=== PATIENT | female | born 1945 | race Caucasian/White ===

== ENCOUNTER 2019-09-23 20:19 | Inpatient (IN) | payer MEDICAID, MEDICARE, OTHER ==
[~2019-09-23] VITALS: Ht 157.5 cm; Wt 112.7 kg
[~2019-09-23 20:19] MED LIST: ALBUAER3 IN; CETI10TA93 PO; FLUT250M2 INH; MET50T PO
[2019-09-23] MEDS ORDERED: dilTIAZem 25 MG/5 ML VIAL IV ONE (21:30)
[2019-09-23] MEDS ORDERED: dilTIAZem HCL 60 MG TAB PO ONE (21:30)
[2019-09-23 22:19] LABS: Basophils # (auto) 0 uL; Basophils % (auto) 0.8 % (0.0-2.0); Eosinophils # (auto) 0 uL; Eosinophils % (auto) 0.1 % (0.0-7.0); Hematocrit 41.2 % (36.0-46.0); Hemoglobin 14.2 g/dL (12.2-16.2); Lymphocytes # (auto) 0.5 uL; Lymphocytes % (auto) 7.6 % (10.0-50.0); Mean Corpuscular Hemoglobin 31.9 pg (28.0-32.0); Mean Corpuscular Hgb Conc. 34.4 g/dL (32.0-36.0); Mean Corpuscular Volume 92.6 fL (80.0-100.0); Monocytes # (auto) 0.4 uL; Monocytes % (auto) 6.3 % (0.0-12.0); Neutrophils # (auto) 5.1 uL; Neutrophils % (auto) 85.2 % (37.0-80.0); Nucleated Red Blood Cells % 0.3 %; Platelet Count (auto) 208 10^3/uL (140-450); Red Blood Cells 4.45 10^6/uL (4.0-5.20); Red Cell Distribution Width 14.6 % (11.8-14.3)
[2019-09-23 22:38] LABS: Albumin 3.4 g/dL (3.4-5.0); Anion Gap 11 (5-15); Blood Urea Nitrogen 18 mg/dL (7-18); Calcium 8.6 mg/dL (8.5-10.1); Carbon Dioxide 20 mmol/L (21-32); Chloride 106 mmol/L (98-107); Glucose 126 mg/dL (74-106); INR 1.11 (0.9-1.15); Magnesium 2.3 mg/dL (1.6-2.6); Partial Thromboplastin Time 30.6 sec (23.64-32.05); Potassium 3.5 mmol/L (3.5-5.1); Sodium 137 mmol/L (136-145)
[2019-09-23 22:44] LABS: Alanine Aminotransferase 15 U/L (13-56); Alkaline Phosphatase 51 U/L (45-117); Aspartate Aminotransferase 16 U/L (15-37); BUN/Creatinine Ratio 15.8; GFR African American 60 mL/min; GFR Non-African American 50 mL/min; Total Protein 7.7 g/dL (6.4-8.2)
[2019-09-23] MEDS ORDERED: methylPREDNISolone SOD SUCC 125 MG/2 ML VL IV ONE (22:45)
[2019-09-24] VITALS (7 sets, daily range): BP systolic 108–152; BP diastolic 51–86
[2019-09-24] MEDS ORDERED: FUROSEMIDE 20 MG/2 ML VIAL IV ONE (00:30)
[2019-09-24] MEDS ORDERED: ONDANSETRON HCL 4 MG/2 ML VIAL IV PRN (00:45)
[2019-09-24] MEDS ORDERED: DOCUSATE SOD 100 MG CAP PO PRN (00:45)
[2019-09-24] MEDS ORDERED: MORPHINE SULF INJ 2 MG/ML SYRINGE 1ML IV PRN (01:00)
[2019-09-24] MEDS ORDERED: NITROGLYCERIN 0.4 MG SL TAB SL PRN (01:00)
[2019-09-24] MEDS: ALBUTEROL SULF 2.5 MG/0.5ML(0.5%) NEB SOLN NEB PRN ×3 (02:48→12:07)
[2019-09-24] MEDS: ACETAMINOPHEN 325 MG TAB PO PRN ×4 (08:19→18:26)
[2019-09-24] MEDS: ASPirin 81 mg TAB PO SCH (09:13)
[2019-09-24] MEDS: dilTIAZem HCL 180MG ER CAP PO SCH (09:14)
[2019-09-24] MEDS: METOPROLOL TARTRATE 25 MG TAB PO SCH ×2 (09:15→22:33)
[2019-09-24] MEDS: PANTOPRAZOLE 40 MG TAB PO SCH (09:15)
[2019-09-24] MEDS: ENOXAPARIN SOD 40 MG/0.4 ML SYRINGE SC SCH (09:16)
[2019-09-24] MEDS ORDERED: guaiFENesin-DM 100/10mg/5ml SYR PO PRN (15:15)
[2019-09-24] MEDS ORDERED: levoFLOXacin 500 MG TAB PO ONE (15:15)
[2019-09-24] MEDS ORDERED: BUDESONIDE (INHALATION) 0.5 MG/2 ML NEB NEB ONE (15:15)
[2019-09-24] MEDS ORDERED: SODIUM CHLORIDE 0.9% 1,000 ML IV ONE (15:15)
[2019-09-24] MEDS ORDERED: methylPREDNISolone SOD SUCC 40 MG/ML VL IV ONE (15:15)
[2019-09-24] MEDS: BUDESONIDE (INHALATION) 0.5 MG/2 ML NEB NEB SCH (19:49)
[2019-09-24] MEDS: LEVALBUTEROL HCL 1.25 MG/3 ML NEB NEB SCH (19:49)
[2019-09-24] MEDS: methylPREDNISolone SOD SUCC 40 MG/ML VL IV SCH (22:30)
[2019-09-24] MEDS: ATORVASTATIN 20 MG TAB PO SCH (22:31)
[2019-09-24] MEDS: MONTELUKAST SODIUM 10 MG TAB PO SCH (22:34)
[2019-09-25] MEDS: LEVALBUTEROL HCL 1.25 MG/3 ML NEB NEB SCH ×4 (04:27→23:08)
[2019-09-25 05:35] VITALS: BP 152/72
[2019-09-25 06:51] LABS: Basophils # (auto) 0 uL; Basophils % (auto) 0.3 % (0.0-2.0); Eosinophils # (auto) 0 uL; Hematocrit 41.7 % (36.0-46.0); Hemoglobin 14.2 g/dL (12.2-16.2); Lymphocytes # (auto) 0.6 uL; Lymphocytes % (auto) 16.1 % (10.0-50.0); Mean Corpuscular Hemoglobin 31.7 pg (28.0-32.0); Mean Corpuscular Hgb Conc. 34.1 g/dL (32.0-36.0); Mean Corpuscular Volume 92.9 fL (80.0-100.0); Monocytes # (auto) 0.4 uL; Neutrophils % (auto) 73.6 % (37.0-80.0); Nucleated Red Blood Cells % 0.3 %; Platelet Count (auto) 255 10^3/uL (140-450); Red Blood Cells 4.49 10^6/uL (4.0-5.20); Red Cell Distribution Width 14.6 % (11.8-14.3)
[2019-09-25 07:10] LABS: Calcium 8.6 mg/dL (8.5-10.1); Potassium 3.7 mmol/L (3.5-5.1)
[2019-09-25 07:11] LABS: BUN/Creatinine Ratio 28.1
[2019-09-25 07:12] LABS: Cholesterol 149 mg/dL (< 200); HDL Cholesterol 27 mg/dL (40-59); LDL Cholesterol 101 mg/dL (< 100); Triglycerides 167 mg/dL (< 150)
[2019-09-25] MEDS: BUDESONIDE (INHALATION) 0.5 MG/2 ML NEB NEB SCH ×2 (07:20→23:08)
[2019-09-25 09:43] VITALS: BP 146/78
[2019-09-25] MEDS: ASPirin 81 mg TAB PO SCH (10:27)
[2019-09-25] MEDS: dilTIAZem HCL 180MG ER CAP PO SCH (10:28)
[2019-09-25] MEDS: levoFLOXacin 250 MG TAB PO SCH (10:28)
[2019-09-25] MEDS: METOPROLOL TARTRATE 25 MG TAB PO SCH (10:28)
[2019-09-25] MEDS: methylPREDNISolone SOD SUCC 40 MG/ML VL IV SCH ×2 (10:29→23:01)
[2019-09-25] MEDS: PANTOPRAZOLE 40 MG TAB PO SCH (10:29)
[2019-09-25] MEDS: ENOXAPARIN SOD 40 MG/0.4 ML SYRINGE SC SCH (10:29)
[2019-09-25] MEDS ORDERED: dilTIAZem HCL 180MG ER CAP PO ONE (11:15)
[2019-09-25] MEDS ORDERED: DIGOXIN (250MCG/ML) 2 ML AMPULE IV ONE (12:00)
[2019-09-25 13:00] VITALS: BP 129/71
[2019-09-25] MEDS: ACETYLCYSTEINE 10 %(100MG/ML) SOL 4ML NEB SCH ×3 (14:00→23:08)
[2019-09-25 17:00] VITALS: BP 130/76
[2019-09-25 22:00] VITALS: BP 147/67
[2019-09-25] MEDS: AMIODARONE HCL 200 MG TAB PO SCH (22:00)
[2019-09-25] MEDS: ATORVASTATIN 20 MG TAB PO SCH (22:57)
[2019-09-25] MEDS: MONTELUKAST SODIUM 10 MG TAB PO SCH (22:59)
[2019-09-25] MEDS: METOPROLOL TARTRATE 50 MG TAB PO SCH (23:02)
[2019-09-26] MEDS: LEVALBUTEROL HCL 1.25 MG/3 ML NEB NEB SCH ×6 (02:24→22:42)
[2019-09-26] MEDS: ACETYLCYSTEINE 10 %(100MG/ML) SOL 4ML NEB SCH ×6 (02:24→22:43)
[2019-09-26 05:00] VITALS: BP 147/79
[2019-09-26] MEDS: BUDESONIDE (INHALATION) 0.5 MG/2 ML NEB NEB SCH ×2 (06:18→22:43)
[2019-09-26 07:37] LABS: Potassium 3.9 mmol/L (3.5-5.1)
[2019-09-26 07:44] LABS: BUN/Creatinine Ratio 35.5
[2019-09-26 09:00] VITALS: BP 138/67
[2019-09-26] MEDS ORDERED: ASPirin-EC 325mg tab PO SCH (10:00)
[2019-09-26] MEDS: AMIODARONE HCL 200 MG TAB PO SCH ×2 (10:14→22:37)
[2019-09-26] MEDS: levoFLOXacin 250 MG TAB PO SCH (10:14)
[2019-09-26] MEDS: METOPROLOL TARTRATE 50 MG TAB PO SCH ×2 (10:14→22:36)
[2019-09-26] MEDS: methylPREDNISolone SOD SUCC 40 MG/ML VL IV SCH ×2 (10:15→22:38)
[2019-09-26] MEDS: ENOXAPARIN SOD 40 MG/0.4 ML SYRINGE SC SCH (10:15)
[2019-09-26] MEDS: dilTIAZem 120MG ER CAP PO SCH (10:15)
[2019-09-26] MEDS: PANTOPRAZOLE 40 MG TAB PO SCH (10:15)
[2019-09-26] MEDS ORDERED: APIXABAN 5 MG TAB PO SCH (11:59)
[2019-09-26 13:00] VITALS: BP_SYST 122; BP_SYST 156; BP_DIAS 63; BP_DIAS 71
[2019-09-26 17:00] VITALS: BP 143/60
[2019-09-26 19:13] VITALS: BP 143/60
[2019-09-26] MEDS: IPRATROPIUM BROM 0.5 MG/2.5ML INH SOL NEB PRN (19:20)
[2019-09-26 21:00] VITALS: BP 148/63
[2019-09-26] MEDS: APIXABAN 5 MG TAB PO SCH (22:36)
[2019-09-26] MEDS: TEMAZEPAM 15 MG CAP PO PRN (22:38)
[2019-09-26] MEDS: ATORVASTATIN 20 MG TAB PO SCH (22:38)
[2019-09-26] MEDS: MONTELUKAST SODIUM 10 MG TAB PO SCH (22:38)
[2019-09-27] MEDS: IPRATROPIUM BROM 0.5 MG/2.5ML INH SOL NEB PRN (02:05)
[2019-09-27] MEDS: ACETYLCYSTEINE 10 %(100MG/ML) SOL 4ML NEB SCH ×6 (02:05→21:26)
[2019-09-27] MEDS: LEVALBUTEROL HCL 1.25 MG/3 ML NEB NEB SCH ×6 (02:05→21:25)
[2019-09-27 05:32] LABS: Urine Amorphous Crystal FEW /hpf (None Seen); Urine Bacteria MANY /hpf (None Seen); Urine Blood Negative /uL (Negative); Urine Specific Gravity 1.032 (1.001-1.035); Urine WBC 39 /hpf (0 - 5)
[2019-09-27 06:39] LABS: Basophils # (auto) 0 uL; Basophils % (auto) 0.1 % (0.0-2.0); Eosinophils # (auto) 0 uL; Hematocrit 39.4 % (36.0-46.0); Hemoglobin 13.2 g/dL (12.2-16.2); Lymphocytes # (auto) 0.9 uL; Lymphocytes % (auto) 13.7 % (10.0-50.0); Mean Corpuscular Hgb Conc. 33.4 g/dL (32.0-36.0); Monocytes # (auto) 0.4 uL; Monocytes % (auto) 6.4 % (0.0-12.0); Neutrophils # (auto) 5.4 uL; Neutrophils % (auto) 79.8 % (37.0-80.0); Nucleated Red Blood Cells % 0.1 %; Platelet Count (auto) 279 10^3/uL (140-450); Red Blood Cells 4.24 10^6/uL (4.0-5.20); Red Cell Distribution Width 14.5 % (11.8-14.3); White Blood Cell 6.8 10^3/uL (4.4-10.8)
[2019-09-27 07:01] LABS: Potassium 4.2 mmol/L (3.5-5.1)
[2019-09-27 07:08] LABS: Albumin 3.2 g/dL (3.4-5.0); BUN/Creatinine Ratio 36.8; Bilirubin, Total 0.3 mg/dL (0.2-1.0); Total Protein 7.6 g/dL (6.4-8.2)
[2019-09-27 08:23] VITALS: BP 125/67
[2019-09-27] MEDS: BUDESONIDE (INHALATION) 0.5 MG/2 ML NEB NEB SCH ×2 (09:36→19:00)
[2019-09-27] MEDS: methylPREDNISolone SOD SUCC 40 MG/ML VL IV SCH ×2 (09:42→22:09)
[2019-09-27] MEDS: levoFLOXacin 250 MG TAB PO SCH (09:42)
[2019-09-27] MEDS: APIXABAN 5 MG TAB PO SCH ×2 (09:42→22:09)
[2019-09-27] MEDS: AMIODARONE HCL 200 MG TAB PO SCH ×2 (09:42→22:11)
[2019-09-27] MEDS: PANTOPRAZOLE 40 MG TAB PO SCH (09:42)
[2019-09-27] MEDS: dilTIAZem 120MG ER CAP PO SCH (09:43)
[2019-09-27] MEDS: METOPROLOL TARTRATE 50 MG TAB PO SCH ×2 (09:44→22:09)
[2019-09-27] MEDS ORDERED: cloNIDine HCL 0.1 MG TAB PO PRN (12:15)
[2019-09-27 13:00] VITALS: BP 154/95
[2019-09-27 17:23] VITALS: BP 152/64
[2019-09-27] MEDS: FUROSEMIDE 20 MG TAB PO SCH (18:00)
[2019-09-27 21:00] VITALS: BP 151/70
[2019-09-27] MEDS: ATORVASTATIN 20 MG TAB PO SCH (22:09)
[2019-09-27] MEDS: POTASSIUM CHLORIDE 8 MEQ TAB PO SCH (22:10)
[2019-09-27] MEDS: MONTELUKAST SODIUM 10 MG TAB PO SCH (22:10)
[2019-09-27] MEDS: TEMAZEPAM 15 MG CAP PO PRN (23:44)
[2019-09-28] MEDS: ACETYLCYSTEINE 10 %(100MG/ML) SOL 4ML NEB SCH ×6 (02:28→21:26)
[2019-09-28] MEDS: IPRATROPIUM BROM 0.5 MG/2.5ML INH SOL NEB PRN (02:28)
[2019-09-28] MEDS: LEVALBUTEROL HCL 1.25 MG/3 ML NEB NEB SCH ×6 (02:28→21:25)
[2019-09-28 05:00] VITALS: BP 147/69
[2019-09-28] MEDS: FUROSEMIDE 20 MG TAB PO SCH ×2 (06:08→17:21)
[2019-09-28 06:58] LABS: Basophils # (auto) 0 uL; Basophils % (auto) 0.2 % (0.0-2.0); Eosinophils # (auto) 0 uL; Hematocrit 40.7 % (36.0-46.0); Hemoglobin 13.6 g/dL (12.2-16.2); Lymphocytes % (auto) 13.8 % (10.0-50.0); Mean Corpuscular Hemoglobin 31.1 pg (28.0-32.0); Mean Corpuscular Hgb Conc. 33.4 g/dL (32.0-36.0); Mean Corpuscular Volume 93.2 fL (80.0-100.0); Monocytes # (auto) 0.3 uL; Monocytes % (auto) 4.5 % (0.0-12.0); Neutrophils # (auto) 6.1 uL; Neutrophils % (auto) 81.5 % (37.0-80.0); Nucleated Red Blood Cells % 0.2 %; Platelet Count (auto) 262 10^3/uL (140-450); Red Blood Cells 4.36 10^6/uL (4.0-5.20); Red Cell Distribution Width 14.8 % (11.8-14.3); White Blood Cell 7.4 10^3/uL (4.4-10.8)
[2019-09-28 07:10] LABS: Calcium 8.5 mg/dL (8.5-10.1); Potassium 4.2 mmol/L (3.5-5.1)
[2019-09-28 09:00] VITALS: BP 151/71
[2019-09-28] MEDS: BUDESONIDE (INHALATION) 0.5 MG/2 ML NEB NEB SCH ×2 (09:20→21:26)
[2019-09-28] MEDS: levoFLOXacin 250 MG TAB PO SCH (10:20)
[2019-09-28] MEDS: APIXABAN 5 MG TAB PO SCH ×2 (10:20→22:30)
[2019-09-28] MEDS: PANTOPRAZOLE 40 MG TAB PO SCH (10:20)
[2019-09-28] MEDS: dilTIAZem 120MG ER CAP PO SCH (10:20)
[2019-09-28] MEDS: POTASSIUM CHLORIDE 8 MEQ TAB PO SCH ×2 (10:21→22:31)
[2019-09-28] MEDS: AMIODARONE HCL 200 MG TAB PO SCH ×2 (10:21→22:31)
[2019-09-28] MEDS: methylPREDNISolone SOD SUCC 40 MG/ML VL IV SCH ×2 (10:28→22:32)
[2019-09-28] MEDS: METOPROLOL TARTRATE 50 MG TAB PO SCH ×2 (10:29→22:30)
[2019-09-28 13:00] VITALS: BP 152/71
[2019-09-28 16:59] VITALS: BP 123/61
[2019-09-28 22:00] VITALS: BP 135/61
[2019-09-28] MEDS: MONTELUKAST SODIUM 10 MG TAB PO SCH (22:29)
[2019-09-28] MEDS: TEMAZEPAM 15 MG CAP PO PRN (22:29)
[2019-09-28] MEDS: ATORVASTATIN 20 MG TAB PO SCH (22:30)
[2019-09-29] MEDS: LEVALBUTEROL HCL 1.25 MG/3 ML NEB NEB SCH ×4 (02:14→15:48)
[2019-09-29] MEDS: ACETYLCYSTEINE 10 %(100MG/ML) SOL 4ML NEB SCH ×4 (02:14→15:48)
[2019-09-29] MEDS: IPRATROPIUM BROM 0.5 MG/2.5ML INH SOL NEB PRN (02:14)
[2019-09-29 05:00] VITALS: BP 136/64
[2019-09-29] MEDS: FUROSEMIDE 20 MG TAB PO SCH (06:28)
[2019-09-29 06:59] LABS: Calcium 8.5 mg/dL (8.5-10.1); Potassium 4.4 mmol/L (3.5-5.1)
[2019-09-29 07:05] LABS: BUN/Creatinine Ratio 36.8
[2019-09-29] MEDS: BUDESONIDE (INHALATION) 0.5 MG/2 ML NEB NEB SCH (08:08)
[2019-09-29 09:00] VITALS: BP 149/82
[2019-09-29] MEDS: METOPROLOL TARTRATE 50 MG TAB PO SCH (10:10)
[2019-09-29] MEDS: APIXABAN 5 MG TAB PO SCH (10:11)
[2019-09-29] MEDS: POTASSIUM CHLORIDE 8 MEQ TAB PO SCH (10:11)
[2019-09-29] MEDS: levoFLOXacin 250 MG TAB PO SCH (10:11)
[2019-09-29] MEDS: PANTOPRAZOLE 40 MG TAB PO SCH (10:11)
[2019-09-29] MEDS: dilTIAZem 120MG ER CAP PO SCH (10:12)
[2019-09-29] MEDS: AMIODARONE HCL 200 MG TAB PO SCH (10:13)
[2019-09-29] MEDS: methylPREDNISolone SOD SUCC 40 MG/ML VL IV SCH (10:15)
[2019-09-29] MEDS ORDERED: APIX5TAB PO (14:47)
[2019-09-29] MEDS ORDERED: AMIO200T4 PO (14:47)
[2019-09-29] MEDS ORDERED: PANT40T PO (14:47)
[2019-09-29] MEDS ORDERED: ATOR20TA50 PO (14:47)
[2019-09-29] MEDS ORDERED: DILT120C12 PO (14:47)
[2019-09-29 16:08] VITALS: BP 149/82
[2019-09-29 17:16] VITALS: BP 127/64
== END 2019-09-29 18:00 | disposition home health service (06) | DRG 291 ==
LOC: EDBD 20:19 → ER 20:24 → TELE 20:25 → TELE-EAST 09-24 02:00
PROVIDERS: ADMIT Nurse Practitioner; ATTEND Internal Medicine
DX: I13.0 Hypertensive heart and chronic kidney disease with heart failure and stage 1 through stage 4 chronic kidney disease, or unspecified chronic kidney disease (principal); I50.33 Acute on chronic diastolic (congestive) heart failure; J96.00 Acute respiratory failure, unspecified whether with hypoxia or hypercapnia; N17.0 Acute kidney failure with tubular necrosis; J44.1 Chronic obstructive pulmonary disease with (acute) exacerbation; J45.901 Unspecified asthma with (acute) exacerbation; D68.69 Other thrombophilia; J98.11 Atelectasis; J44.0 Chronic obstructive pulmonary disease with (acute) lower respiratory infection; I48.91 Unspecified atrial fibrillation; J20.9 Acute bronchitis, unspecified; E78.5 Hyperlipidemia, unspecified; E11.22 Type 2 diabetes mellitus with diabetic chronic kidney disease; N18.9 Chronic kidney disease, unspecified; E66.01 Morbid (severe) obesity due to excess calories; J98.4 Other disorders of lung; E11.21 Type 2 diabetes mellitus with diabetic nephropathy; E66.9 Obesity, unspecified; Z90.49 Acquired absence of other specified parts of digestive tract; Z79.51 Long term (current) use of inhaled steroids; Z82.49 Family history of ischemic heart disease and other diseases of the circulatory system; Z83.3 Family history of diabetes mellitus; Z88.2 Allergy status to sulfonamides
CPT/HCPCS: 36415; 36600; 71045; 78582; 80048; 80053; 80061; 81001; 82805; 83036; 83735; 83880; 84443; 84484; 85025; 85379; 85610; 85730; 87070; 87086; 87205; 87804; 93005; 93306; 93970; 94640; 97116; 97163; 97530; G0378

== ENCOUNTER 2019-10-06 11:22 | Inpatient (IN) | payer MEDICARE ==
[~2019-10-06] VITALS: Ht 157.5 cm; Wt 112.0 kg
[~2019-10-06 11:22] MED LIST changes: +AMIO200T4 PO; +APIX5TAB PO; +ATOR20TA50 PO; +DILT120C12 PO; +PANT40T PO
[2019-10-06 13:55] LABS: Basophils # (auto) 0 10 ^3/uL (0-0.2); Basophils % (auto) 0.1 % (0.0-2.0); Eosinophils # (auto) 0 10 ^3/uL (0-0.8); Eosinophils % (auto) 0.1 % (0.0-7.0); Hemoglobin 13.7 g/dL (12.2-16.2); Lymphocytes # (auto) 1.1 10 ^3/uL (0.4-5.4); Lymphocytes % (auto) 8.6 % (10.0-50.0); Mean Corpuscular Hemoglobin 31.2 pg (28.0-32.0); Mean Corpuscular Hgb Conc. 33.4 g/dL (32.0-36.0); Mean Corpuscular Volume 93.3 fL (80.0-100.0); Monocytes # (auto) 0.6 10 ^3/uL (0-1.3); Monocytes % (auto) 4.8 % (0.0-12.0); Neutrophils # (auto) 11.2 10 ^3/uL (1.6-8.6); Neutrophils % (auto) 86.4 % (37.0-80.0); Nucleated Red Blood Cells % 0.1 %; Platelet Count (auto) 298 10^3/uL (140-450); Red Cell Distribution Width 14.6 % (11.8-14.3)
[2019-10-06 14:08] LABS: Albumin 3.1 g/dL (3.4-5.0); Calcium 8.3 mg/dL (8.5-10.1); Potassium 4.5 mmol/L (3.5-5.1)
[2019-10-06 14:09] LABS: Urine Bacteria NONE SEEN /hpf (None Seen); Urine Blood Negative /uL (Negative); Urine Mucus FEW (None Seen); Urine Specific Gravity 1.029 (1.001-1.035); Urine WBC 1 /hpf (0 - 5)
[2019-10-06 14:11] LABS: BUN/Creatinine Ratio 27.8; Bilirubin, Total 1.1 mg/dL (0.2-1.0); Total Protein 6.9 g/dL (6.4-8.2)
[2019-10-06 14:14] LABS: INR 1.06 (0.9-1.15); Partial Thromboplastin Time 29.1 sec (23.64-32.05)
[2019-10-06] MEDS ORDERED: cefTRIAXone 1GM/50ML D5W 50 ML IV ONE (15:15)
[2019-10-06] MEDS ORDERED: HYDROcodone-ACET 5/325MG TAB PO ONE (15:30)
[2019-10-06] MEDS ORDERED: ONDANSETRON HCL 4 MG/2 ML VIAL IV PRN (17:15)
[2019-10-06] MEDS ORDERED: MORPHINE SULF INJ 2 MG/ML SYRINGE 1ML IV PRN ×2 (17:15)
[2019-10-06] MEDS ORDERED: DOCUSATE SOD 100 MG CAP PO PRN (17:15)
[2019-10-06] MEDS ORDERED: NITROGLYCERIN 0.4 MG SL TAB SL PRN (17:15)
[2019-10-06 21:00] VITALS: BP 129/49
--- NOTE | 2019-10-06 21:00 | NUR ---
Telemetry admit from ER NAVEEN DONATO admitted to Telemetry unit after SBAR received. Patient oriented to SHAHBAZ COOK RN primary RN, MST unit, room 274, bed B, and unit policies regarding patient care and visiting hours. Patient now on continuous telemetry monitoring, tele box #[id number] and telemetry reading on arrival to unit is sinus rhythm. Patient placed on bedside oxygen at 2L NC, weighed by bedscale and encouraged to call if they need something. All questions and concerns addressed, patient verbalized understanding. Note: Bed in lowest locked position, side rails up x2, even and unlabored respirations, no S/S of distress or pain. Will continue to monitor Q1 PRN.
[2019-10-06] MEDS: METOPROLOL TARTRATE 50 MG TAB PO SCH (22:00)
[2019-10-06 22:29] VITALS: BP 129/49
[2019-10-06] MEDS: ATORVASTATIN 20 MG TAB PO SCH (22:52)
[2019-10-06] MEDS: CLINDAMYCIN 300MG IV 50 ML IV SCH (22:52)
[2019-10-06] MEDS: AMIODARONE HCL 200 MG TAB PO SCH (22:52)
[2019-10-06] MEDS: APIXABAN 5 MG TAB PO SCH (22:52)
[2019-10-06] MEDS: ALBUTEROL SULF 2.5 MG/0.5ML(0.5%) NEB SOLN NEB PRN (23:33)
[2019-10-06] MEDS: IPRATROPIUM BROM 0.5 MG/2.5ML INH SOL NEB PRN (23:33)
[2019-10-07] MEDS: HYDROcodone-ACET 5/325MG TAB PO PRN ×2 (00:13→21:04)
[2019-10-07] MEDS ORDERED: INFLUENZA QUAD 2019-2020 0.5ml SYRG IM ONE (02:00)
[2019-10-07 02:46] VITALS: BP 129/49
[2019-10-07 05:34] VITALS: BP 121/72
[2019-10-07] MEDS: CLINDAMYCIN 300MG IV 50 ML IV SCH ×3 (05:45→21:11)
--- NOTE | 2019-10-07 06:47 | NUR ---
Closing Note Patient resting in bed with even and unlabored respirations, no s/s of distress. Bed lowest locked position with side rails up x 2 and call light within reach.
[2019-10-07 07:24] LABS: Hematocrit 39.3 % (36.0-46.0); Mean Corpuscular Hemoglobin 30.9 pg (28.0-32.0); Mean Corpuscular Volume 93.6 fL (80.0-100.0); Platelet Count (auto) 265 10^3/uL (140-450); Red Cell Distribution Width 14.5 % (11.8-14.3)
[2019-10-07 07:29] LABS: Albumin 2.7 g/dL (3.4-5.0); BUN/Creatinine Ratio 26.2; Calcium 8.3 mg/dL (8.5-10.1)
[2019-10-07 07:32] LABS: Total Protein 6.4 g/dL (6.4-8.2)
[2019-10-07 07:37] LABS: Basophils % (manual) 0 (0.0-2.0); Blast Cells 0; Eosinophils % (manual) 0 (0-7); Metamyelocytes % 0; Myelocytes % 0; Promyelocytes % 0; Reactive Lymphocytes 0
[2019-10-07 08:25] LABS: Band Neutrophils % (manual) 1; Lymphocytes % (manual) 11 (10.0-50.0); Monocytes % (manual) 5 (0-12)
[2019-10-07 09:00] VITALS: BP 110/72
[2019-10-07] MEDS: cefTRIAXone 1GM/50ML D5W 50 ML IV SCH (09:14)
[2019-10-07] MEDS: APIXABAN 5 MG TAB PO SCH ×2 (09:16→21:10)
[2019-10-07] MEDS: AMIODARONE HCL 200 MG TAB PO SCH ×2 (09:16→21:11)
[2019-10-07] MEDS: PANTOPRAZOLE 40 MG TAB PO SCH (09:17)
[2019-10-07] MEDS: METOPROLOL TARTRATE 50 MG TAB PO SCH (09:17)
[2019-10-07] MEDS: ACETAMINOPHEN 500 MG TAB PO PRN (09:18)
[2019-10-07] MEDS ORDERED: FAMOTIDINE 20 MG TAB PO SCH (10:00)
--- NOTE | 2019-10-07 11:03 | NUR ---
WOUND CARE NOTE: Wound care into see patient per wound care request regarding skin integrity issue that are noted present on admission. Patient is 74 years old female with admitting diagnosis of Lt lower Extremity Cellulitis. Patient with history of Asthma, A Fib,CHF, COPD, Htn and CKF. Patient is resting in bed in Rm. 274B. Patient is awake, alert and oriented. Patient is in no stated pain at this time. She's self turn and repositioning. Her Memo score is 18. Skin assessment done with the assistance of patient's nurse, GIANNI Zee. No open wound noted other than edema, erythema, ecchymosis, and 3x4cm intact blood blister/hematoma to patient's LLE. Patient reported that she accidentally hit her L ankle in a van door. LLE has intact skin, no drainage or odor noted,left open to air. Patient has surgical consult for hematoma. Patient reported that she has stress incontinence "I wet myself when I cough". Madonna care given, care pad changed, and applied Barrier cream to sacral, buttocks as preventative. No open draining wound noted, no pressure injury noted. Patient educated on skin protection measures, reminded to call for help if needed to be clean and car pad changed. Patient verbalized understanding. Photograph of patient's LLE are taken for reference. Bed in low position, call rae on hand, with all safety precautions in placed. No further wound care monitoring needed at this time. RECOMMENDATION: Nursing to continue with BID/PRN cleaning and application of Barrier cream to sacral, buttocks as preventative, elevate affected extremity on pillows, redistribute pressure points with pillows, reconsult for active wound, pressure injury, low Memo score of 12 and below. Addendum: 10/07/19 at 1250 by Cammie Duff RN Amended: Links added.
[2019-10-07] MEDS: ALBUTEROL SULF 2.5 MG/0.5ML(0.5%) NEB SOLN NEB PRN ×2 (16:50→21:43)
[2019-10-07] MEDS: IPRATROPIUM BROM 0.5 MG/2.5ML INH SOL NEB PRN ×2 (16:50→21:43)
[2019-10-07 17:00] VITALS: BP 131/73
--- NOTE | 2019-10-07 17:50 | NUR ---
DR MAN INFORMED ME THAT HE DOES NOT DO EXTREMITIES IN THIS CASE WHERE HE WAS CONSULTED FOR THE PATIENT'S LOWER LEFT EXTREMITY
--- NOTE | 2019-10-07 19:50 | NUR ---
Opening Shift Note Assumed care of patient, awake and alert, oriented x 4, follows direction, clear speech. On oxygen at 2L via NC with even and unlabored respirations, no S/S of distress/SOB. Patient is able to turn independently in bed, mild weakness and swelling to left lower extremity, elevated left lower extremity on pillow. Bed in lowest locked position with side rails up x 2 and call light within reach.Instructed on POC and to call for assist PRN, will continue to monitor for changes Q1hr and PRN.
[2019-10-07] MEDS: ATORVASTATIN 20 MG TAB PO SCH (21:10)
--- NOTE | 2019-10-07 22:00 | NUR ---
Doug Walden NP RE: Metoprolol order clarification Currently order is Metoprolol 1mg PO, paged to clarify order, patient takes Metoprolol 25mg PO BID at home, awaiting call back, will continue care.
[2019-10-07 22:02] VITALS: BP 125/70
--- NOTE | 2019-10-07 22:30 | NUR ---
Received call back from DALTON Gutierrez updated DALTON Gutierrez on current Metoprolol order and patients home medication dose, new order received, read back and verified, will carry our and continue care.
[2019-10-07] MEDS ORDERED: METOPROLOL TARTRATE 25 MG TAB PO ONE (22:45)
[2019-10-08 04:50] VITALS: BP 122/78
[2019-10-08] MEDS: CLINDAMYCIN 300MG IV 50 ML IV SCH ×3 (05:18→21:38)
[2019-10-08] MEDS: HYDROcodone-ACET 5/325MG TAB PO PRN ×3 (05:19→21:45)
--- NOTE | 2019-10-08 06:53 | NUR ---
Closing Note patient awake and alert, resting in bed with oxygen on, no s/s of distress. Left extremity elevated on pillow. Bed in lowest locked position with side rails up x 2 and call light within reach.
--- NOTE | 2019-10-08 06:59 | NUR ---
Endorsed care to dayshift GIANNI Paige
--- NOTE | 2019-10-08 07:25 | NUR ---
RECEIVED PATIENT FROM NOC SHIFT RN, AWAKE, ALERT AND ORIENTED X4, DENIES PAIN, NO SOB AND IN NO APPARENT DISTRESS, ON 2L NC. PLAN OF CARE DISCUSSED. PHONE AND CALL LIGHT WITHIN REACH. WILL CONTINUE TO MONITOR Q1HR AND PRN.
[2019-10-08 08:00] VITALS: BP 107/58
[2019-10-08] MEDS: cefTRIAXone 1GM/50ML D5W 50 ML IV SCH (08:51)
[2019-10-08 09:00] VITALS: BP 107/58
[2019-10-08] MEDS: METOPROLOL TARTRATE 25 MG TAB PO SCH ×2 (10:02→21:43)
[2019-10-08] MEDS: AMIODARONE HCL 200 MG TAB PO SCH ×2 (10:03→21:40)
[2019-10-08] MEDS: APIXABAN 5 MG TAB PO SCH ×2 (10:03→21:41)
[2019-10-08] MEDS: PANTOPRAZOLE 40 MG TAB PO SCH (10:03)
--- NOTE | 2019-10-08 10:29 | NUR ---
RT NOTE: WENT TO PTS ROOM TO ASSESS FOR PRN BREATHING TX, NO S/S OF SOB. NO INDICATION FOR TX AT THIS TIME. HR 87, RR 16, SPO2 96% ON 2L NC. WILL CONTINUE TO MONITOR PT.
[2019-10-08 13:00] VITALS: BP_SYST 135; BP_SYST 159; BP_DIAS 61; BP_DIAS 71
[2019-10-08] MEDS: IPRATROPIUM BROM 0.5 MG/2.5ML INH SOL NEB PRN ×2 (16:25→21:38)
[2019-10-08] MEDS: ALBUTEROL SULF 2.5 MG/0.5ML(0.5%) NEB SOLN NEB PRN ×2 (16:25→21:38)
--- NOTE | 2019-10-08 19:03 | NUR ---
Respiratory note: ASSESSMENT FOR PRN MED NEB TX. PT PRESENTING NO RESPIRATORY DISTRESS AT THIS TIME, HR 82, SPO2 97% ON 2L NC, RR 17, BS DIMINISHED. MED NEB TX NOT INDICATED AT THIS TIME, PT AWARE TO HAVE RT PAGED FOR MED NEB TX. WILL CONTINUE TO MONITOR.
--- NOTE | 2019-10-08 19:15 | NUR ---
Opening Shift Note Assumed care of patient, awake, alert and oriented x4. Patient on 2L oxygen via NC, even and unlabored respirations, no S/S of distress/SOB or pain. Patient able to turn independently, bed in lowest lock position, side rails up x2, and call light within reach. Instructed on POC and to call for assist PRN, will continue to monitor for changes Q1hr and PRN.
[2019-10-08] MEDS: ATORVASTATIN 20 MG TAB PO SCH (21:41)
[2019-10-08 22:32] VITALS: BP 130/75
[2019-10-09] VITALS (7 sets, daily range): BP systolic 120–157; BP diastolic 60–83
[2019-10-09] MEDS: ACETAMINOPHEN 500 MG TAB PO PRN (01:47)
[2019-10-09] MEDS: IPRATROPIUM BROM 0.5 MG/2.5ML INH SOL NEB PRN ×4 (04:53→21:12)
[2019-10-09] MEDS: ALBUTEROL SULF 2.5 MG/0.5ML(0.5%) NEB SOLN NEB PRN ×4 (04:53→21:12)
[2019-10-09] MEDS: CLINDAMYCIN 300MG IV 50 ML IV SCH ×3 (06:06→22:48)
--- NOTE | 2019-10-09 07:05 | NUR ---
Closing Note patient awake and alert, resting in bed with oxygen on, no s/s of distress. Left extremity elevated on pillow. Bed in lowest locked position with side rails up x 2 and call light within reach. Per doctor Tiffanie progress note, partial WB on LLE with walker, recommend to day shift RN for PT and walker. Endorsed care to dayshift RN Grecia.
--- NOTE | 2019-10-09 07:20 | NUR ---
Opening Shift Note Assumed care of patient, awake and alert, oriented x 4. On 2L oxygen via NC with even and unlabored respirations, no S/S of distress/SOB, denies pain at this time. Patient is able to turn independently in bed, mild weakness and swelling to left lower extremity, left lower extremity elevated on pillow. Bed in lowest locked position with side rails up x 2 and call light within reach.Plan of care discussed and instructed to call for assist PRN, will continue to monitor for changes Q1hr and PRN.
--- NOTE | 2019-10-09 07:36 | NUR ---
Respiratory note: ASSESSED PT FOR PRN MEDNEB TX. HR 90, RR 18, SPO2 96% ON 2LPM NASAL CANNULA. BREATH SOUNDS CLEAR/DIMINISHED THROUGHOUT. PT DENIES ANY SOB, SAYS SHE DOESN'T NEED A TX RIGHT NOW. MEDNEB TX NOT INDICATED AT THIS TIME. PT AWARE TO CALL FOR RT IF NEEDED.
[2019-10-09] MEDS: cefTRIAXone 1GM/50ML D5W 50 ML IV SCH (09:25)
[2019-10-09] MEDS: AMIODARONE HCL 200 MG TAB PO SCH ×2 (09:26→22:48)
[2019-10-09] MEDS: APIXABAN 5 MG TAB PO SCH ×2 (09:26→22:48)
[2019-10-09] MEDS: PANTOPRAZOLE 40 MG TAB PO SCH (09:26)
[2019-10-09] MEDS: METOPROLOL TARTRATE 25 MG TAB PO SCH ×2 (09:27→22:49)
--- NOTE | 2019-10-09 11:57 | NUR ---
assessment Patient is a 74 year old female who is alert and oriented. . Prior to admission patient lived home with family and functioned independently. Patient informed me she is able to care for her own ADLs. Per patient she will return home to her prior living arrangements post discharge and family will transport her home. Patient informed me she has home 02. Patient informed me she was getting out of a taxi van and hit her leg. Patient has swelling and bruising on her left leg and foot. Patient will benefit from a fww on discharge. I informed patient she has a right to speak to a social services coordinator regarding all care. I informed patient she has a right to participate in any and all discharge planning. Patient does not have a POA and advanced directive. I have offered patient information on POA and advanced directives. I informed the patient the advantages and benefits of having an Advanced Directive. Patient verbalized understanding and agreed to discharge plan. Addendum: 10/09/19 at 1200 by Meg HUFFMAN Amended: Links added.
--- NOTE | 2019-10-09 17:19 | NUR ---
D/C Planning Per consult for home health physical therapy and safety evaluation and walker. Spoke to patient at bedside regarding order. Patient stated she does not feel safe going home and would prefer to go to a skill nursing for physical therapy. GIANNI Paige was informed. Patient was given a choice letter at bedside. Patient requested [facility]. Patient verbalize understanding d/c plan. Faxed order to [facility]. Per Chelita patient has been accepted to room 8b accepting MD Dr. Harry. Transportation has been arrange at 18:30 via wheelchair with [facility] Ph:( [phone]). Charge Nurse Trevor was informed.
--- NOTE | 2019-10-09 19:00 | NUR ---
patient pending discharge pickup by [facility] transportation to [facility]. Son called and made aware of discharge plans.
--- NOTE | 2019-10-09 19:40 | NUR ---
PT ASSESSED , PRN TX NOT INDICATED AT THIS TIME.
--- NOTE | 2019-10-09 19:40 | NUR ---
TALKED TO [facility]. THEY STATED THAT THE ETA WOULD BE [id number]. INFORMED THE PT. DIRECTOR OF PUBLIC RELATIONS, LE PROCTOR.
--- NOTE | 2019-10-09 21:08 | NUR ---
PAGED RT FOR PT REQUESTING A BREATHING TREATMENT.
[2019-10-09] MEDS: ATORVASTATIN 20 MG TAB PO SCH (22:48)
--- NOTE | 2019-10-09 23:48 | NUR ---
Discharge instructions given as ordered. All questions and concerns addressed. Patient verbalized understanding. IV removed with catheter intact, pressure dressing applied. Medication reconciliation form completed and copy given to patient. Telemetry unit returned to ICU. Report given to at 1710 to skyler at [facility] via dayshift. Patient transported by [facility] with all personal belongings. No distress noted at time of departure.
== END 2019-10-09 23:47 | DRG 604 ==
LOC: EDBD 11:22 → ER 11:22 → TELE 11:23 → TELE-WESTW 20:39
PROVIDERS: ADMIT Nurse Practitioner Acute Care; ATTEND Family Medicine
DX: S80.12XA Contusion of left lower leg, initial encounter (principal); I50.33 Acute on chronic diastolic (congestive) heart failure; I13.0 Hypertensive heart and chronic kidney disease with heart failure and stage 1 through stage 4 chronic kidney disease, or unspecified chronic kidney disease; Z68.42 Body mass index [BMI] 45.0-49.9, adult; J44.1 Chronic obstructive pulmonary disease with (acute) exacerbation; I48.91 Unspecified atrial fibrillation; N18.3 Chronic kidney disease, stage 3 (moderate); E88.09 Other disorders of plasma-protein metabolism, not elsewhere classified; D72.829 Elevated white blood cell count, unspecified; R26.2 Difficulty in walking, not elsewhere classified; E66.01 Morbid (severe) obesity due to excess calories; E78.00 Pure hypercholesterolemia, unspecified; E78.5 Hyperlipidemia, unspecified; Z99.81 Dependence on supplemental oxygen; Z90.49 Acquired absence of other specified parts of digestive tract; Z88.2 Allergy status to sulfonamides; Z79.899 Other long term (current) drug therapy; Z84.89 Family history of other specified conditions; Z82.49 Family history of ischemic heart disease and other diseases of the circulatory system; Z83.3 Family history of diabetes mellitus; Z91.018 Allergy to other foods; Z82.0 Family history of epilepsy and other diseases of the nervous system; Z79.01 Long term (current) use of anticoagulants; Z79.51 Long term (current) use of inhaled steroids; Z90.89 Acquired absence of other organs
CPT/HCPCS: 36415; 73610; 73700; 80053; 81001; 85007; 85025; 85027; 85610; 85730; 87081; 93971; 94640; 96365; 97163; G0378; J0696; J3490